=== PATIENT | male | born 1960 | race Caucasian/White ===

== ENCOUNTER 2019-05-05 08:38 | Day surgery (SDC) | payer OTHER ==
[~2019-05-05] VITALS: Ht 167.6 cm; Wt 62.1 kg
[2019-05-05] MEDS ORDERED: OMEPRAZOLE20 MG PO (09:39)
[2019-05-05] MEDS ORDERED: DAILY MULTIPLE1 EACH PO (09:39)
[2019-05-05] MEDS ORDERED: METAMUCIL0.4 GM PO (09:40)
== END 2019-05-05 11:12 | disposition home or self-care (01) ==
LOC: ORSCSDS 08:38
PROVIDERS: Internal Medicine Gastroenterology
PROC: 0DBN8ZX Excision of Sigmoid Colon, Via Natural or Artificial Opening Endoscopic, Diagnostic (ICD-10-PCS; principal; 2019-05-05 10:15)
PROC: 0DB58ZX Excision of Esophagus, Via Natural or Artificial Opening Endoscopic, Diagnostic (ICD-10-PCS; principal; 2019-05-05 10:15)
PROC: 0DBK8ZX Excision of Ascending Colon, Via Natural or Artificial Opening Endoscopic, Diagnostic (ICD-10-PCS; principal; 2019-05-05 10:15)
PROC: 0D5H8ZZ Destruction of Cecum, Via Natural or Artificial Opening Endoscopic (ICD-10-PCS; principal; 2019-05-05 10:15)
PROC: 0DBP8ZX Excision of Rectum, Via Natural or Artificial Opening Endoscopic, Diagnostic (ICD-10-PCS; principal; 2019-05-05 10:15)
PROC: 0DB78ZX Excision of Stomach, Pylorus, Via Natural or Artificial Opening Endoscopic, Diagnostic (ICD-10-PCS; principal; 2019-05-05 10:15)
DX: Z12.11 Encounter for screening for malignant neoplasm of colon (principal); D12.5 Benign neoplasm of sigmoid colon; D12.0 Benign neoplasm of cecum; D12.2 Benign neoplasm of ascending colon; K62.1 Rectal polyp; Z86.010 Personal history of colon polyps; R10.13 Epigastric pain; K29.70 Gastritis, unspecified, without bleeding; K21.9 Gastro-esophageal reflux disease without esophagitis; R11.0 Nausea; Q27.33 Arteriovenous malformation of digestive system vessel; F17.220 Nicotine dependence, chewing tobacco, uncomplicated
CPT/HCPCS: 88305; 88342; J2704; J7120

== ENCOUNTER → 2020-11-28 | Outpatient (CLI) | payer OTHER ==
[~2020-11-28] MED LIST: DAILY MULTIPLE1 EACH PO; METAMUCIL0.4 GM PO; OMEPRAZOLE20 MG PO
== END | disposition home or self-care (01) ==
LOC: LAB 14:54 → LAB SHORT 14:54
DX: R19.7 Diarrhea, unspecified (principal)
CPT/HCPCS: 87338

== ENCOUNTER 2021-11-20 09:48 | Observation (INO) | payer OTHER ==
[~2021-11-20] VITALS: Ht 167.6 cm; Wt 76.3 kg
[2021-11-20 12:14] LABS: Hematocrit 39.5 % (37.0-53.0); Hemoglobin 12.9 g/dL (13.5-17.5); Mean Corpuscular HGB 29.6 pg (26.0-34.0); Mean Corpuscular HGB Conc 32.7 g/dL (31.5-36.5); Mean Corpuscular Volume 91 fL (80-100); Mean Platelet Volume 9.1 fL (9.1-12.4); Platelet Count 338 K/mm3 (150-400); RDW Coefficient Variation 13.2 % (11.7-14.2); RDW Standard Deviation 43.9 fL (35.1-46.3); Red Blood Cell Count 4.36 M/mm3 (4.30-5.90); White Blood Cell Count 22.71 K/mm3 (4.00-11.30)
[2021-11-20 12:57] LABS: Albumin, Blood 3.2 g/dL (3.4-5.0); Albumin/Globulin Ratio 0.7 (0.8-1.8); Bilirubin, Total 0.6 mg/dL (0.1-1.0); Calcium, Blood 8.8 mg/dL (8.5-10.1); Creatinine, Blood 0.93 mg/dL (0.60-1.20); Globulin, Blood 4.6 g/dL (2.2-4.0); Potassium, Blood 3.6 mmol/L (3.5-5.5); Total Protein, Blood 7.8 g/dL (6.4-8.2)
[2021-11-20 13:10] LABS: BASOPHILS ABSOLUTE MAN 0.22 K/mm3 (0.00-0.23); BASOPHILS PERCENT MAN 1 % (0-2); EOSINOPHILS ABSOLUTE MAN 0.22 K/mm3 (0.00-0.68); EOSINOPHILS PERCENT MAN 1 % (0-6); LYMPHOCYTES ABSOLUTE MAN 8.62 K/mm3 (0.84-5.20); LYMPHOCYTES PERCENT MAN 38 % (21-46); MONOCYTES ABSOLUTE MAN 1.13 K/mm3 (0.16-1.47); MONOCYTES PERCENT MAN 5 % (4-13); MYELOCYTE ABSOLUTE MAN 0.22 K/mm3 (0.00-0.00); MYELOCYTE PERCENT MAN 1 % (0-0); NEUTROPHILS ABSOLUTE MAN 12.26 K/mm3 (1.96-9.15); SEG NEUTROPHILS PERCENT MAN 54 % (41-73); TOTAL CELLS COUNTED 100
[2021-11-20 16:40] LABS: Influenza A, PCR NEGATIVE (NEGATIVE); Influenza B, PCR NEGATIVE (NEGATIVE); Resp Syncytial Virus, PCR NEGATIVE (NEGATIVE); SARS-Cov-2 (COVID-19) PCR, MMC NEGATIVE (NEGATIVE)
--- NOTE | 2021-11-20 20:25 | NUR ---
REPORT RECIEVED FROM [facility] ([facility]) AND AWAITING PT T/F TO ROOM 303.
--- NOTE | 2021-11-20 21:40 | NUR ---
PT C/O GALLO, NECK PAIN AND SINUS PRESSURE. MADE AWARE AND NEW ORDER RECIEVED FOR TYLENOL AND ULTRAM PRN. WILL ADMINISTER AND ASSESS FOR EFFECT.
--- NOTE | 2021-11-20 23:00 | NUR ---
PROCARDIA RX'D X1 FOR HYPERTENSION AND TACHYCARDIA. MED RECIEVED, WILL REEVALUATE FOR EFFECT. GALLO W/NECK PAIN PERSISTS SO ULTRAM WAS RECIEVED. FEVER IS WORSE DESITE TYLNOL BUT PT IS WRAPPED IN BLANKETS THAT HAVE NOW BEEN REMOVED. WILL REASSESS MOMENTARILY.
--- NOTE | 2021-11-21 01:18 | NUR ---
BP IMPROVED AFTER RECIEVING X1 DOSE PROCARDIA BUT THIS RN ALERTED THAT HR REMAINS ELEVATED AT 120'S-130'S BPM. TELEMETRY AND LOPRESSOR 5MG IV X1 RX'D.
--- NOTE | 2021-11-21 04:29 | NUR ---
RX'D FENTANYL PRN FOR GALLO UNRELIEVED T/O NOCTE FROM OTHER MEDS. ATTEMPTED TO ADMINISTER BUT PT IS FINALLY SLEEPING W/O S/S DISTRESS. WILL ADMINISTER WHEN PT AWAKES IF IT'S STILL NEEDED.
--- NOTE | 2021-11-21 04:31 | NUR ---
SUMMARY: PT A/OX4, IS INDEPENDENT IN ROOM AND CALLS APPROPRIATELY TO SPECIFY NEEDS. HE BEGAN SHIFT HYPERTENSIVE, TACHYCARDIC AND FEBRILE. TYLENOL, ULTRAM, X1 PROCARDIA AND X1 LOPRESSOR RECIEVED T/O NOCTE. BP IMPROVED, HR NOW 1 TEENS AND WAS PREVIOUSLY 120'S-130'S AND TEMP WNL AT 98.8 FROM TMAX 101.6. PT CONT'S TO C/O OF GALLO, NECK PAIN AND SINUS PRESSURE BUT IS FINALLY SLEEPING W/S S/S DISTRESS SO PLAN TO ADMIN FENTANYL OR TYLENOL IF NEEDED WHEN PT AWAKES. HE WAS PLACED ON TELEMETRY FOR PERSISTANT TACHYCARDIA AND IS S.TACH AT PRESENT. PT USED URINAL AND IS UP TO TOILET AD MEGGAN. HE WAS DIAPHORETIC MUCH OF NIGHT DESPITE TEMP IMPROVING. IV BOLUSES AND ABX RECIEVED IN ER FOR R.LOWER LOBE PNM. PT CONT'S TO HAVE INTERMITTENT COUGH BUT HEMOPTYSIS IS MUCH BETTER. SXN SETUP IN ROOM BUT HASN'T BEEN REQUIRED. NO S/S RESP DISTRESS, LS CLEAR AND DIM IN BASES. NO ACUTE CHANGES. WCTM AND REPORT TO DAY RN.
[2021-11-21] MEDS ORDERED: Simvastatin10 MG PO (05:58)
[2021-11-21] MEDS ORDERED: Bentyl20 MG PO (05:58)
[2021-11-21] MEDS ORDERED: GLIP10 PO (05:58)
[2021-11-21 08:02] LABS: BASOPHILS ABSOLUTE AUTO 0.07 K/mm3 (0.00-0.23); BASOPHILS PERCENT AUTO 0 % (0-2); EOSINOPHILS ABSOLUTE AUTO 0.23 K/mm3 (0.00-0.68); EOSINOPHILS PERCENT AUTO 1 % (0-6); Hematocrit 37.7 % (37.0-53.0); Hemoglobin 12.4 g/dL (13.5-17.5); Mean Corpuscular HGB 29.7 pg (26.0-34.0); Mean Corpuscular HGB Conc 32.9 g/dL (31.5-36.5); Mean Corpuscular Volume 90 fL (80-100); Platelet Count 344 K/mm3 (150-400); RDW Coefficient Variation 13.2 % (11.7-14.2); Red Blood Cell Count 4.18 M/mm3 (4.30-5.90); White Blood Cell Count 26.29 K/mm3 (4.00-11.30)
[2021-11-21 08:03] LABS: IMMATURE GRAN ABSOLUTE AUTO 0.32 K/mm3 (0.00-0.10); IMMATURE GRAN PERCENT AUTO 1 % (0-1); LYMPHOCYTES ABSOLUTE AUTO 10.38 K/mm3 (0.84-5.20); LYMPHOCYTES PERCENT AUTO 40 % (21-46); MONOCYTES ABSOLUTE AUTO 1.81 K/mm3 (0.16-1.47); MONOCYTES PERCENT AUTO 7 % (4-13); NEUTROPHILS ABSOLUTE AUTO 13.48 K/mm3 (1.96-9.15); NEUTROPHILS PERCENT AUTO 51 % (41-73)
[2021-11-21] MEDS ORDERED: AZIT250 PO (11:57)
[2021-11-21] MEDS ORDERED: ACET325 PO (11:59)
[2021-11-21] MEDS ORDERED: NIFE30ER PO (12:50)
[2021-11-21] MEDS ORDERED: IBUP600 PO (12:51)
[2021-11-21] MEDS ORDERED: AMOCLA875 PO (12:52)
--- NOTE | 2021-11-21 14:02 | NUR ---
PT DISCHARGED THE PT BERBALIZED UNDERSTANDING OF THE DC INSTRUCTIONS. THE PHARMACIST SPOKE WITH THE PT REGARDING DC MEDICATIONS. THE PT WAS TRANSFERED VIA WHEELCHAIR ACCOMPANIED BY THE PUMP TESTER AND HIS . PTS PRESCRIPTIONS WERE FAXED TO [facility] IN [place]
== END 2021-11-21 13:50 | disposition home or self-care (01) ==
LOC: ER 09:48 → MEDS 09:49 → ER 17:00 → MEDS 17:00
PROVIDERS: Physician Assistant; ADMIT Family Medicine
DX: J18.9 Pneumonia, unspecified organism (principal); E11.9 Type 2 diabetes mellitus without complications; K21.9 Gastro-esophageal reflux disease without esophagitis; J45.909 Unspecified asthma, uncomplicated; Z79.899 Other long term (current) drug therapy; Z20.822 Contact with and (suspected) exposure to COVID-19
CPT/HCPCS: 0241U; 36415; 71046; 80053; 82947; 83605; 83690; 85025; 93005; 93010; 96361; 96365; 96375; 99285-25; A9270; G0378; J0696; J1885; J2405; J7030

== ENCOUNTER → 2023-06-30 | Outpatient (CLI) | payer OTHER ==
[~2023-06-30] MED LIST changes: +ACET325 PO; +AMOCLA875 PO; +AZIT250 PO; +Bentyl20 MG PO; +GLIP10 PO; +IBUP600 PO; +NIFE30ER PO; +Simvastatin10 MG PO
== END ==
LOC: LAB SHORT 10:35 → LAB 10:35
DX: L02.219 Cutaneous abscess of trunk, unspecified (principal)
CPT/HCPCS: 87070; 87075; 87205

== ENCOUNTER 2024-03-24 07:08 | Day surgery (SDC) | payer OTHER ==
[2024-03-24] VITALS (20 sets, daily range): BP systolic 113–169; BP diastolic 72–126
[~2024-03-24] VITALS: Ht 166 cm; Wt 74.0 kg
[~2024-03-24 07:08] MED LIST changes: +Crestor40 MG PO; +Lactated Ringer's 1,000 ML IV SCH
[2024-03-24] MEDS ORDERED: PROAIR DIGIHAL90 MCG INH (07:53)
[2024-03-24] MEDS ORDERED: propofoL 20 ML IV ONE (08:01)
--- NOTE | 2024-03-24 08:07 | NUR ---
History, Chart, Medications and Allergies reviewed before start of procedure. Patient up to Ambulate independently. Gait steady. Pre-Op teaching done. Pt verbalizes understanding. Patient confirms NPO status and agrees with scheduled surgery. Patient States Post-Procedure ride home has been arranged.
[2024-03-24] MEDS ORDERED: Midazolam HCl 1MG / ML 2ML Vial ONE (08:20)
--- NOTE | 2024-03-24 08:20 | NUR ---
03/24/24 0820 Shukri Michel CONFIRMED AND REVIEWED H&P, MEDCICATIONS, ALLERGIES, MEDICAL HISTORY, RESPIRATORY HISTORY, VITAL SIGNS, 3-LEAD EKG, CONSENTS, AND PHYSICIAN ORDERS. PATIENT CONFIRMS NPO STATUS AND AGREES WITH SCHEDULED PROCEDURE. MONITOR INTACT WITH CONTINUOUS PULSE OXIMETRY, CAPNOGRAPHY, 3-LEAD EKG, INTERMITTENT BP. SUPPLEMENTAL O2 TO BE TITRATED THROUGHOUT PROCEDURE TO MAINTAIN O2 SATURATION ABOVE 90%. PATIENT DETERMINED TO BE ASA APPROPRIATE FOR PROPOFOL SEDATION PRIOR TO START OF PROCEDURE BY DR. SCHAEFFER
--- NOTE | 2024-03-24 09:15 | NUR ---
Patient up to Ambulate independently. Gait steady. Discharge instructions reviewed with patient. Patient verbalizes understanding. Copy given to patient to take home, WELL FAMILY. Patient States Post-Procedure ride home has been arranged. Discharged via wheelchair to private car for ride home. PT DENIES PAIN,N/V,SOB. REPORTS READY TO GO HOME. TOLERATING PO. DR SCHAEFFER BEEN TO SEE PT, SKIP/3 YEARS.
== END 2024-03-24 09:15 | disposition home or self-care (01) ==
LOC: ORSCMMR 07:08 → ORD 08:00 → ORSCMMR 08:00
PROVIDERS: Internal Medicine Gastroenterology
PROC: 0DBN8ZX Excision of Sigmoid Colon, Via Natural or Artificial Opening Endoscopic, Diagnostic (ICD-10-PCS; principal; 2024-03-24 08:00)
PROC: 0DBM8ZX Excision of Descending Colon, Via Natural or Artificial Opening Endoscopic, Diagnostic (ICD-10-PCS; principal; 2024-03-24 08:00)
PROC: 0DBK8ZX Excision of Ascending Colon, Via Natural or Artificial Opening Endoscopic, Diagnostic (ICD-10-PCS; principal; 2024-03-24 08:00)
DX: Z12.11 Encounter for screening for malignant neoplasm of colon (principal); D12.2 Benign neoplasm of ascending colon; D12.4 Benign neoplasm of descending colon; K63.5 Polyp of colon; K57.30 Diverticulosis of large intestine without perforation or abscess without bleeding; K64.4 Residual hemorrhoidal skin tags; Z86.0101 Personal history of adenomatous and serrated colon polyps; Z85.46 Personal history of malignant neoplasm of prostate; C85.85 Other specified types of non-Hodgkin lymphoma, lymph nodes of inguinal region and lower limb; K21.9 Gastro-esophageal reflux disease without esophagitis; E78.00 Pure hypercholesterolemia, unspecified; Z79.84 Long term (current) use of oral hypoglycemic drugs; Z79.899 Other long term (current) drug therapy
CPT/HCPCS: 82947; 88305; J2250; J2704; J7120